=== PATIENT | female | born 1950 | race Caucasian/White ===

== ENCOUNTER → 2024-06-06 10:22 | Outpatient (BNVA) | payer MEDICARE, OTHER, SELFPAY | PROVIDERS: Visit Provider Specialist | DX: R29.90 Unspecified symptoms and signs involving the nervous system (principal); G40.209 Localization-related (focal) (partial) symptomatic epilepsy and epileptic syndromes with complex partial seizures, not intractable, without status epilepticus; Z96.89 Presence of other specified functional implants; G43.711 Chronic migraine without aura, intractable, with status migrainosus | CPT/HCPCS: 95971; 99204; 99205 ==

== ENCOUNTER → 2024-09-13 11:04 | Outpatient (BNVA) | payer MEDICARE, OTHER, SELFPAY | PROVIDERS: Visit Provider Specialist | DX: R29.90 Unspecified symptoms and signs involving the nervous system (principal); G40.209 Localization-related (focal) (partial) symptomatic epilepsy and epileptic syndromes with complex partial seizures, not intractable, without status epilepticus; Z96.89 Presence of other specified functional implants; G43.711 Chronic migraine without aura, intractable, with status migrainosus | CPT/HCPCS: 95970; 99214 ==

== ENCOUNTER → 2025-04-12 08:48 | Outpatient (BNVA) | payer MEDICARE, OTHER, SELFPAY | PROVIDERS: PCP Family Medicine; Visit Provider Specialist | DX: R29.90 Unspecified symptoms and signs involving the nervous system (principal); Z96.89 Presence of other specified functional implants; G40.209 Localization-related (focal) (partial) symptomatic epilepsy and epileptic syndromes with complex partial seizures, not intractable, without status epilepticus; G43.711 Chronic migraine without aura, intractable, with status migrainosus; G31.84 Mild cognitive impairment of uncertain or unknown etiology | CPT/HCPCS: 95970; 99214 ==

== ENCOUNTER → 2025-10-09 12:39 | Outpatient (BNVA) | payer MEDICARE, OTHER, SELFPAY | PROVIDERS: PCP Family Medicine; Visit Provider Specialist | DX: G40.209 Localization-related (focal) (partial) symptomatic epilepsy and epileptic syndromes with complex partial seizures, not intractable, without status epilepticus (principal); Z96.89 Presence of other specified functional implants | CPT/HCPCS: 95970; 99215 ==